=== PATIENT | female | born 1935 | race Asian ===

== ENCOUNTER 2021-02-07 12:21 | Inpatient (IN) | payer OTHER, MEDICAID, SELFPAY ==
[~2021-02-07] VITALS: Ht 162.6 cm; Wt 82.6 kg
[~2021-02-07 12:21] MED LIST: ACET-1182 PO; APIX2.5 PO; ATOR40TA PO; FURO-570 PO; LACT10SO11 PO; LISI5TAB18 PO; METF500T PO; METO50TE2 PO; PANT40EC PO; SYN.075 PO; [UNRECOGNIZED DRUG - CODE] PO
--- NOTE | 2021-02-07 12:22 | NUR ---
PT TAKEN TO ER BED 4.
--- NOTE | 2021-02-07 12:24 | NUR ---
RN at pt bedside for evaluation.
[2021-02-07 12:25] VITALS: BP 117/71
--- NOTE | 2021-02-07 12:30 | NUR ---
85 FEMALE BIBA FROM [facility] [place] DUE TO R HIP XRAY FROM 02/06/21 SHOWING FRACTURE. PER EMT "FACILITY WANTS TO SEE WHAT CAN BE DONE FOR THE PT WITH HER CURRENT XRAY SHOWING A R HIP FRACTURE." PT BASELINE IS A&OX1 AND ONLY SPEAKS AMHARIC. BED TO LOWEST POSITION. BEDRAILS X2 UP FOR PT. PMH: HTN NKA Addendum: 02/07/21 at 1232 by [email or web address] PMH: DM, HTN
[2021-02-07] MEDS ORDERED: METO50TE2 PO (12:41)
[2021-02-07] MEDS ORDERED: LACT-103 PO (12:41)
[2021-02-07] MEDS ORDERED: FURO-570 PO (12:41)
[2021-02-07] MEDS ORDERED: ATOR40TA PO (12:41)
[2021-02-07] MEDS ORDERED: METF500T PO (12:41)
[2021-02-07] MEDS ORDERED: LISI5TAB18 PO (12:41)
[2021-02-07] MEDS ORDERED: POTA10TE30 PO (12:41)
[2021-02-07] MEDS ORDERED: SYN.05 PO (12:41)
[2021-02-07] MEDS ORDERED: APIX2.5 PO (12:41)
--- NOTE | 2021-02-07 12:41 | NUR ---
semiconductor development technician at pt bedside, brendan MANJARREZ at pt bedside.
[2021-02-07 12:54] LABS: BASOPHILS # (AUTO) 0.1 K/uL (0.00-0.22); BASOPHILS % (AUTO) 0.8 % (0.0-2.0); EOSINOPHILS # (AUTO) 0.1 K/uL (0-0.4); EOSINOPHILS % (AUTO) 0.9 % (0.0-4.0); HEMATOCRIT 32.3 % (36-48); HEMOGLOBIN 10.8 g/dL (12.0-16.0); LYMPHOCYTES # (AUTO) 0.7 K/uL (2.5-16.5); LYMPHOCYTES % (AUTO) 9.8 % (20.5-51.1); MEAN CORPUSCULAR HEMOGLOBIN 34 pg (27-31); MEAN CORPUSCULAR HGB CONC 34 g/dL (33-37); MEAN CORPUSCULAR VOLUME 100.7 fL (80-94); MONOCYTES # (AUTO) 0.9 K/uL (0.8-1.0); MONOCYTES % (AUTO) 13.6 % (1.7-9.3); NEUTROPHILS % (AUTO) 74.9 % (42.2-75.2); PLATELET COUNT (AUTO) 117 K/uL (140-450); RED BLOOD CELL COUNT(AUTO) 3.21 MIL/uL (4.20-5.40); RED CELL DISTRIBUTION WIDTH 18.7 % (11.6-13.7); WHITE BLOOD COUNT (AUTO) 6.7 K/uL (4.8-10.8)
--- NOTE | 2021-02-07 12:57 | NUR ---
PT TAKEN TO XRAY VIA STEVE
[2021-02-07 13:08] LABS: PROTHROMBIN TIME 14.7 secs (10.8-13.4)
--- NOTE | 2021-02-07 13:11 | NUR ---
PT TAKEN TO ER BED 4 VIA YANGRSARAI.
[2021-02-07 13:21] LABS: ANION GAP 13.1 (8-16); CARBON DIOXIDE 24.9 mmol/L (21-32); CHLORIDE 105 mmol/L (98-107); CREATININE 1.3 mg/dL (0.6-1.3); GLUCOSE 122 mg/dL (74-106); SODIUM SERUM 139 mmol/L (136-145); UREA NITROGEN, BLOOD 33 mg/dL (7-18)
[2021-02-07 13:26] LABS: ALBUMIN 3.2 g/dL (3.4-5.0); ASPARTATE AMINOTRANSFERASE 27 U/L (15-37); TOTAL BILIRUBIN 3.3 mg/dL (0.0-1.0)
[2021-02-07] MEDS ORDERED: ONDANSETRON 4 MG/2 ML VIAL IVP PRN (13:40)
[2021-02-07] MEDS ORDERED: POTASSIUM CHLORIDE 10 MEQ TABER PO PRN (13:40)
[2021-02-07] MEDS ORDERED: MAGNESIUM OXIDE 400 MG TAB PO PRN (13:40)
[2021-02-07] MEDS ORDERED: HYDROcodone/APAP 5/325 MG 1 TAB TAB PO PRN (13:40)
[2021-02-07] MEDS ORDERED: MAG SULF 2000 MG/WATER PREMIX 50 ML IV PRN (13:40)
[2021-02-07] MEDS ORDERED: KCL 20 MEQ/WATER INJ PREMIX 200 ML IV PRN (13:40)
[2021-02-07] MEDS ORDERED: ACETAMINOPHEN 325 MG TAB PO PRN (13:40)
--- NOTE | 2021-02-07 14:02 | NUR ---
PT TAKEN TO CT VIA STEVE
[2021-02-07] MEDS: NACL 0.9% 1,000 ML IV SCH (14:03)
--- NOTE | 2021-02-07 14:13 | NUR ---
Pt taken to ER bed 4 via [facility].
[2021-02-07] MEDS: MORPHINE SULFATE 4 MG/ML SYR IVP PRN (15:03)
--- NOTE | 2021-02-07 15:47 | NUR ---
Gave report to JD Singh for pending transfer 110A ETA 10minutes.
[2021-02-07 16:00] VITALS: BP 136/83
--- NOTE | 2021-02-07 16:00 | NUR ---
Pt admitted to room 110A from ED via [facility]. Pt is alert, Mohawk-speaking, no signs of distress. Pt transferred from [place] to bed with 4-person sliding transfer. Right hip noted to be externally rotated. Tiwari cath in place and draining clear orange urine.
--- NOTE | 2021-02-07 16:04 | NUR ---
Patient will be admitted to care of DR. SHAKIR JONES. Admited to [facility]. Will go to room 110A. Belongings list completed. Report to JD DREW.
--- NOTE | 2021-02-07 16:29 | NUR ---
SaO2 = 90% in room air. Instructed patient to take deep breaths. Dr Jones notified and ok'd to administer O2 via n/c. O2 applied and titrated to 3L/min to achieve SaO2 @ 95%. Respirations even & nonlabored. Bed alarm on. Fall precautions in place.
--- NOTE | 2021-02-07 17:30 | NUR ---
Spoke to Kathrin nurse from [facility] re: pt's hx. Per Kathrin, she unable to locate pt's chart at this time. Informed Kathrin staff nurse will f/u tomorrow for report. Kathrin verbalized understanding.
--- NOTE | 2021-02-07 17:45 | NUR ---
Daughter Ezra called back and notified of pt's admission to room 110A. Daughter states pt has not had COVID vaccine, and she is not sure if pt had PNA vaccine and FLU vaccine.
--- NOTE | 2021-02-07 19:20 | NUR ---
Report given to pm nurse.
[2021-02-07 21:00] VITALS: BP 117/51
[2021-02-08] MEDS: NACL 0.9% 1,000 ML IV SCH ×2 (03:53→14:40)
[2021-02-08 04:04] VITALS: BP 92/54
[2021-02-08 06:04] LABS: BASOPHILS % (AUTO) 0.7 % (0.0-2.0); EOSINOPHILS # (AUTO) 0.1 K/uL (0-0.4); EOSINOPHILS % (AUTO) 1.6 % (0.0-4.0); HEMATOCRIT 29.6 % (36-48); HEMOGLOBIN 9.8 g/dL (12.0-16.0); LYMPHOCYTES # (AUTO) 0.7 K/uL (2.5-16.5); MEAN CORPUSCULAR HEMOGLOBIN 34 pg (27-31); MEAN CORPUSCULAR HGB CONC 33 g/dL (33-37); MEAN CORPUSCULAR VOLUME 101.4 fL (80-94); MONOCYTES # (AUTO) 0.7 K/uL (0.8-1.0); MONOCYTES % (AUTO) 13.1 % (1.7-9.3); NEUTROPHILS # (AUTO) 3.8 K/uL (1.8-7.7); NEUTROPHILS % (AUTO) 70.6 % (42.2-75.2); PLATELET COUNT (AUTO) 96 K/uL (140-450); RED BLOOD CELL COUNT(AUTO) 2.91 MIL/uL (4.20-5.40); RED CELL DISTRIBUTION WIDTH 18.9 % (11.6-13.7); WHITE BLOOD COUNT (AUTO) 5.4 K/uL (4.8-10.8)
[2021-02-08 06:26] LABS: PROTHROMBIN TIME 14.4 secs (10.8-13.4)
--- NOTE | 2021-02-08 06:36 | NUR ---
PT SLEPT WELL DURING NIGHT. NO C/O PAIN. NPO FOR SURGERY IN A.M. PT ABLE TO MAINTAIN SATURATION AT 96% ON RA X3HRS. 02 N/C TAKEN OFF. REMAINS AT BEDSIDE. WILL MONITOR FOR EVIDENCE DESATURATION.
[2021-02-08 06:46] LABS: ALBUMIN 2.8 g/dL (3.4-5.0); ANION GAP 13.5 (8-16); ASPARTATE AMINOTRANSFERASE 24 U/L (15-37); CARBON DIOXIDE 22.8 mmol/L (21-32); CHLORIDE 109 mmol/L (98-107); CREATININE 1.5 mg/dL (0.6-1.3); GLUCOSE 95 mg/dL (74-106); POTASSIUM 4.3 mmol/L (3.5-5.1); SODIUM SERUM 141 mmol/L (136-145); TOTAL BILIRUBIN 2.9 mg/dL (0.0-1.0); UREA NITROGEN, BLOOD 38 mg/dL (7-18)
[2021-02-08 06:55] LABS: CHOL/HDL RATIO 2.6 (1-4.5)
--- NOTE | 2021-02-08 07:24 | NUR ---
PT ENDORSED BY APPLIQUE SEWER NURSE FOR CONTINUITY OF CARE, POC DISCUSSED. PT IS IN FOR A RIGHT FEMORAL FRACTURE. PT IS ASLEEP IN BED WITH NO ACUTE SIGNS OF DISTRESS. PT IS ON ROOM AIR SATING AT 94% AND HR AT 63. PT SKIN IS INTACT. LAST BOWEL MOVEMENT ON THE 16. PT HAS A JANSEN IN PLACE WITH 200 ML OUT PUT OF YELLOW URINE. PT HAS A LEFT AC 20 G RUNNING NS @ 80 ML/HR. ALL SAFETY MEASURES IN PLACE, CALL LIGHT WITHIN REACH. WILL CONTINUE TO MONITOR.
--- NOTE | 2021-02-08 07:48 | NUR ---
PATIENT HAS BEEN SCREENED AND CATEGORIZED LOW NUTRITION RISK. PATIENT WILL BE SEEN WITHIN 7 DAYS OF ADMISSION. 02/14/[address]
[2021-02-08 08:00] VITALS: BP 129/77
[2021-02-08] MEDS: MORPHINE SULFATE 4 MG/ML SYR IVP PRN ×2 (08:44→14:15)
[2021-02-08] MEDS: DOCUSATE SODIUM 100 MG GELCAP PO SCH ×2 (08:44→08:53)
--- NOTE | 2021-02-08 08:53 | NUR ---
JUDY HEPARIN HELD FOR PLT UNDER 100 AND POSSIBLE PROCEDURE TODAY. JUDY MEDICATION NOT ADMINISTERED DUE TO PT REFUSING. PT COMPLAINED OF PAIN, BP AND HR STABLE, PAIN MEDICATION ADMINISTERED PER MD ORDER. PT IS RESTING IN BED WITH ALL SAFETY MEASURES IN PLACE. CALL LIGHT WITHIN REACH. WILL CONTINUE TO MONITOR.
--- NOTE | 2021-02-08 11:24 | NUR ---
ROUNDED ON PT, PT IS ASLEEP IN BED WITH NO S/S OF ACUTE DISTRESS. ON 2 L NC, SATING AT 98%. PT CHEST RISING AND FALLING EVEN AND UNLABORED. ALL SAFETY MEASURES IN PLACE, CALL LIGHT WITHIN REACH. WILL CONTINUE TO MONITOR.
[2021-02-08] MEDS ORDERED: LACTULOSE 20 GM/30 ML UDC PO PRN (12:55)
[2021-02-08] MEDS ORDERED: INSULIN LISPRO SLIDING SCALE 100 UNITS/ML VIAL SUBQ PRN (12:55)
[2021-02-08] MEDS ORDERED: DEXTROSE 50% 50 ML SYR IVP PRN (12:55)
--- NOTE | 2021-02-08 13:46 | NUR ---
ROUNDED ON PT, PT IS RESTING COMFORTABLY IN BED WITH CHEST RISING AND FALLING EVEN AND UNLABORED. ALL SAFETY MEASURES IN PLACE. CALL LIGHT WITHIN REACH. WILL CONTINUE TO MONITOR.
--- NOTE | 2021-02-08 14:15 | NUR ---
PT COMPLAINING OF SEVERE PAIN, FLACC 7. WILL MEDICATE PER MD ORDER. PT EDUCATION PROVIDED. PT UNABLE TO COMPREHEND. VITAL SIGNS WNL. PT TOLERATED ADMINISTRATIONS. ALL SAFETY MEASURES IN PLACE. CALL LIGHT WITHIN REACH WILL CONTINUE TO MONITOR.
--- NOTE | 2021-02-08 15:24 | NUR ---
ROUNDED ON PT, PT IS ASLEEP IN BED WITH NO ACUTE S/S OF DISTRESS. ALL SAFETY MEASURES IN PLACE, CALL LIGHT WITHIN REACH. WILL CONTINUE TO MONITOR.
[2021-02-08] MEDS: BLOOD GLUCOSE MONITORING 1 DEV DEV FS SCH ×2 (17:09→21:15)
--- NOTE | 2021-02-08 19:04 | NUR ---
PT IS IN STABLE CONDITION AND WILL BE ENDORSED TO SALES AND SERVICE ENGINEER NURSE. ALL SAFETY MEASURES IN PLACE. POC DISCUSSED.
[2021-02-08 20:17] VITALS: BP 126/75
--- NOTE | 2021-02-08 20:44 | NUR ---
RECEIVED PT IN STABLE CONDITION FROM AM NURSE. AWAKE,BUT CONFUSED. MED SURG PT. BEDREST. WITH NO S/S OF ANY PAIN NOTED AT THIS TIME. HAS IVF INFUSING WELL ON THE LT AC G#20. NEED FREQUENT REMINDING TO PUT LT ARM STRAIGHT. HAS JANSEN CATHETER DRAINING TO CLEAR URINE OUTPUT. FREQ CHECK NEEDED.ED ON LOWEST POSITION. SIDE RAILS UP X2. CALL LIGHT PLACED WITHIN REACH. WILL CONTINUE TO MONITOR. Addendum: 02/09/21 at 0249 by May Nuñez RN TIME RECEIVED PT WAS AROUND 1919.
[2021-02-08] MEDS ORDERED: LEVOTHYROXINE 0.05 MG TAB PO SCH (21:00)
[2021-02-08] MEDS: PANTOPRAZOLE 40 MG TABEC PO SCH (21:13)
[2021-02-08] MEDS: ATORVASTATIN 20 MG TAB PO SCH (21:13)
--- NOTE | 2021-02-08 22:00 | NUR ---
MADE AWARE THAT HEPARIN WAS HOLD TONIGHT FOR SURGERY TOMORROW. ALSO HE SAID OK TO CHANGE IVF PRESENT IVF OF NS 80 ML TO D5 1/2 NS AT 50 ML/HR.
[2021-02-08] MEDS: DEXT 5% / NACL 0.45% 1,000 ML IV SCH (23:11)
--- NOTE | 2021-02-09 00:05 | NUR ---
KEPT PT NPO FOR SURGERY IN AM. CONSENT STILL NEED TO BE SIGNED BY FAMILY AND SURGEON.
--- NOTE | 2021-02-09 00:21 | NUR ---
PATIENT ASLEEP, RESTING IN A POSITION OF COMFORT, NO OBVIOUS SIGNS OF DISTRESS OBSERVED. VS STABLE, OXYGEN SATURATION 97%, RR 18. WILL CONTINUE TO CLOSELY MONITOR AND FREQUENTLY ROUND. Addendum: 02/10/21 at 0709 by Demar Werner RN RN DISREGARD, NOTE FOR 02/10
--- NOTE | 2021-02-09 02:00 | NUR ---
MADE ROUNDS. PT ASLEEP. NO S/S OF ANY DISCOMFORT NOR PAIN NOTED.
[2021-02-09 04:00] VITALS: BP 116/58
[2021-02-09] MEDS: MORPHINE SULFATE 4 MG/ML SYR IVP PRN (04:20)
[2021-02-09] MEDS: LEVOTHYROXINE 0.075 MG TAB PO SCH (06:26)
[2021-02-09] MEDS: BLOOD GLUCOSE MONITORING 1 DEV DEV FS SCH ×4 (06:26→21:42)
[2021-02-09 06:36] LABS: BASOPHILS # (AUTO) 0.1 K/uL (0.00-0.22); BASOPHILS % (AUTO) 1.1 % (0.0-2.0); EOSINOPHILS # (AUTO) 0.1 K/uL (0-0.4); HEMATOCRIT 30.9 % (36-48); HEMOGLOBIN 10.1 g/dL (12.0-16.0); LYMPHOCYTES # (AUTO) 0.9 K/uL (2.5-16.5); LYMPHOCYTES % (AUTO) 15.4 % (20.5-51.1); MEAN CORPUSCULAR HEMOGLOBIN 34 pg (27-31); MEAN CORPUSCULAR HGB CONC 33 g/dL (33-37); MEAN CORPUSCULAR VOLUME 102.8 fL (80-94); MONOCYTES # (AUTO) 0.9 K/uL (0.8-1.0); MONOCYTES % (AUTO) 14.6 % (1.7-9.3); NEUTROPHILS # (AUTO) 4.2 K/uL (1.8-7.7); NEUTROPHILS % (AUTO) 67.9 % (42.2-75.2); PLATELET COUNT (AUTO) 125 K/uL (140-450); RED BLOOD CELL COUNT(AUTO) 3.01 MIL/uL (4.20-5.40); RED CELL DISTRIBUTION WIDTH 19.4 % (11.6-13.7); WHITE BLOOD COUNT (AUTO) 6.2 K/uL (4.8-10.8)
[2021-02-09 06:57] LABS: PROTHROMBIN TIME 12.6 secs (10.8-13.4)
[2021-02-09 07:00] LABS: ANION GAP 14.8 (8-16); ASPARTATE AMINOTRANSFERASE 22 U/L (15-37); CARBON DIOXIDE 21.9 mmol/L (21-32); CHLORIDE 110 mmol/L (98-107); CREATININE 1.6 mg/dL (0.6-1.3); GLUCOSE 104 mg/dL (74-106); POTASSIUM 4.7 mmol/L (3.5-5.1); SODIUM SERUM 142 mmol/L (136-145); TOTAL BILIRUBIN 2.7 mg/dL (0.0-1.0); UREA NITROGEN, BLOOD 45 mg/dL (7-18)
--- NOTE | 2021-02-09 07:24 | NUR ---
PT ENDORSED BY HOG RIBBER NURSE FOR CONTINUITY OF CARE, POC DISCUSSED. PT IS ASLEEP IN BED ON 2L NC WITH CHEST RISING AND FALLING EVEN AND UNLABORED. PT IS SATING AT 91% WITH A HEART RATE OF 74. PT HAS A L AC 20 GAUGE RUNNING HALF D5 NS AT 50 ML. PT IS NPO FOR PROCEDURE SCHEDULED AT 1030, CONSENT NOT SIGNED. NOTIFIED DR MILLS AND THAT PT IS UNABLE TO SIGN FOR HERSELF, PHONE NUMBER IN CHART FOR DAUGHTER. STATED HE WILL " BE IN, IN 15 MINUTES". PREOP CHECK LIST COMPLETED BY HOG RIBBER NURSE. ALL SAFETY MEASURES IN PLACE, CALL LIGHT WITHIN REACH. WILL CONTINUE TO MONITOR.
--- NOTE | 2021-02-09 08:00 | NUR ---
DR. MILLS SPOKE WITH DAUGHTER TO OBTAIN CONSENT, 2 RN SIGNED CONSENT FOR OVER THE PHONE CONSENT, MYSELF AND JOSEPH. ALL QUESTIONS ANSWERED. WILL NOTIFY DAUGHTER OF UPDATE LATER THIS AFTERNOON AFTER SURGERY.
--- NOTE | 2021-02-09 08:59 | NUR ---
PT HAS BEEN PICKED UP FOR HER JUDY SURGERY. REPORT WAS GIVEN TO JD JHA AND DR. FISH. ALL QUESTIONS WERE ANSWERED AND CARDIOLOGY REPORT WAS PRINTED FOR DR. FISH. PT IS IN STABLE CONDITION.
[2021-02-09] MEDS ORDERED: metFORMIN 500 MG TAB PO SCH (09:00)
[2021-02-09] MEDS ORDERED: FUROSEMIDE 20 MG TAB PO SCH (09:00)
[2021-02-09] MEDS: DOCUSATE SODIUM 100 MG GELCAP PO SCH (09:00)
[2021-02-09] MEDS: METOPROLOL SUCCINATE 50 MG TABER PO SCH (09:00)
[2021-02-09] MEDS: PANTOPRAZOLE 40 MG TABEC PO SCH ×2 (09:00→21:00)
[2021-02-09] MEDS: FUROSEMIDE 40 MG TAB PO SCH (09:00)
[2021-02-09] MEDS: lisinopriL 5 MG TAB PO SCH (09:00)
[2021-02-09] MEDS ORDERED: ETOMIDATE 20 MG/10 ML VIAL IVP ONE (09:45)
[2021-02-09] MEDS ORDERED: fentaNYL citrate 0.05 MG/ML VIAL ONE (09:45)
[2021-02-09] MEDS ORDERED: MAGNESIUM SULFATE IV ONE (09:45)
[2021-02-09] MEDS ORDERED: ROCURONIUM 50 MG/5 ML VIAL IV ONE (09:45)
[2021-02-09] MEDS ORDERED: TRANEXAMIC ACID 1,000 MG/10 ML VIAL ONE (09:45)
[2021-02-09] MEDS ORDERED: SUGAMMADEX SODIUM 200 MG/2 ML VIAL IV ONE (09:45)
[2021-02-09] MEDS ORDERED: FUROSEMIDE 20 MG/2 ML VIAL IVP ONE (09:45)
[2021-02-09] MEDS ORDERED: LIDOCAINE 2% 100 MG/5 ML SYR IVP ONE (09:45)
[2021-02-09] MEDS ORDERED: BUPIVACAINE-MPF/EPI 0.25% 30 ML VIAL INJ ONE (09:46)
[2021-02-09] MEDS ORDERED: PHENYLEPHRINE 10 MG in NACL 0.9% 250 ML IV PRN (10:35)
[2021-02-09 12:00] VITALS: BP 93/51
[2021-02-09] MEDS ORDERED: diphenhydrAMINE 50 MG/ML VIAL IVP PRN (13:00)
[2021-02-09] MEDS ORDERED: MEPERIDINE 25 MG/ML SYR IVP PRN (13:00)
[2021-02-09] MEDS: OXYTOCIN 20 UNITS in LACTATED RINGERS 1,000 ML IV SCH ×2 (13:00→21:21)
[2021-02-09] MEDS: LACTATED RINGERS 1,000 ML IV SCH ×2 (13:00→21:20)
[2021-02-09] MEDS ORDERED: HYDROmorphone 1 MG/ML AMP IVP PRN (13:00)
[2021-02-09] MEDS ORDERED: ONDANSETRON 4 MG/2 ML VIAL IVP PRN (13:00)
--- NOTE | 2021-02-09 14:14 | NUR ---
RECEIVED REPORT FROM ABHIJEET REAGAN AND DELMER MILES. S/P ORIF OF RIGHT HIP. PT ASLEEP BUT AROUSABLE BY NAME, NO S/S OF PAIN, NO SOB
[2021-02-09 16:00] VITALS: BP 97/58
--- NOTE | 2021-02-09 16:30 | NUR ---
2-hour vital signs monitoring done. VS within normal limits
[2021-02-09] MEDS: DEXT 5% / NACL 0.45% 1,000 ML IV SCH (16:42)
--- NOTE | 2021-02-09 17:30 | NUR ---
CALLED DR MOHR TO CLARIFY DIET ORDER. MAY START CARDIAC CCHO PUREE DIET
--- NOTE | 2021-02-09 17:45 | NUR ---
BEDSIDE SWALLOW EVAL DONE, PT NOT SWALLOWING FOOD AND POCKETING. DR MOHR NOTIFIED, ORDERED ST EVAL
--- NOTE | 2021-02-09 18:39 | NUR ---
PT RESTING IN BED, AWAKENS TO NAME, NO SOB, WITH GRIMACING WHEN MOVING
--- NOTE | 2021-02-09 19:30 | NUR ---
RECEIVED CARE AND REPORT FROM DAYSHIFT RN. PATIENT ALERT AND ORIENTED X 1 TO PERSON, NON AMBULATORY, S/P SURGERY. PATIENT RESTING IN A POSITION OF COMFORT, HOB 30 DEGREES, AIRWAY OPEN, CLEAR AND MAINTAINABLE. PATIENT DENIES SOB OR DIFFICULTY BREATHING WHEN ASKED. PATIENT CONNECTED TO NC 2 LPM, OXYGEN SATURATION IS 95%, RR 20, NO OBVIOUS SIGNS OF DISTRESS OBSERVED WHILE AT BEDSIDE. PATIENT CONNECTED TO CONTINUOUS TELE MONITORING, HR 86. PATIENT IV SITE INCLUDES LEFT FA 18G IV SITE DRESSING DRY, INTACT AND FLUSHING WELL. NO SIGNS OF INFILTRATION OR PAIN PRESENT AT THE SITE. PATIENT RUNNING D5-1/2 NS AT 50 ML/HR. PATIENT HAS A JANSEN CATHETER INTACT, IN PLACE AND DRAINING WELL. PATIENT SKINS SHOW RIGHT THIGH, TWO INCISION W/ MEREDITH, DRESSINGS DRY, INTACT AND IN PLACE AND CLEAN. PATIENT HAS LEG BRACE IN PLACE POST SURGERY. BED LOCKED AND LOWERED INTO A POSITION OF SAFETY. PATIENT BEING OFFLOADED FROM PRESSURE POINTS WITH USE OF PILLOWS AND REPOSITIONING PROVIDED Q2 HOURS. PROMOTING A RESTFUL HEALING ENVIRONMENT WITH DECREASED STIMULI. PATIENT ORIENTED TO ROOM ENVIRONMENT, NURSE CALL LIGHT PLACED WITHIN REACH OF PATIENT. WILL CONTINUE TO REASSESS OFTEN, CLOSELY MONITOR AND FREQUENTLY ROUND.
[2021-02-09 20:00] VITALS: BP 110/50
[2021-02-09] MEDS: ATORVASTATIN 20 MG TAB PO SCH (21:00)
--- NOTE | 2021-02-09 21:30 | NUR ---
SCHEDULED IV MEDICATIONS GIVEN, TOLERATING THERAPIES WELL. VS STABLE, WILL CONTINUE TO CLOSELY MONITOR AND FREQUENTLY ROUND.
[2021-02-09] MEDS ORDERED: ceFAZolin 1,000 MG VIAL ONE (21:35)
--- NOTE | 2021-02-09 21:35 | NUR ---
CALLED DR. MILLS TO CLARIFY MEDICATION ORDERS FOR PATIENT. DR. MILLS ORDERED VERBALLY OVER THE TELEPHONE TO HOLD HEPARIN SUBQ FOR TONIGHT AND RESUME IN THE MORNING IF NO BLEEDING PRESENT, HEPARIN HELD TONIGHT NOT GIVEN. MD ALSO STATED TO CONTINUE TO GIVING D5%-0.45% NS AT 50 ML/HR. STATED TO HOLD LACTATED RINGERS AND HOLD LACTATED RINGERS WITH PITOCIN. WILL CARRY OUT ORDERS.
--- NOTE | 2021-02-09 21:40 | NUR ---
PATIENT UNABLE TO TOLERATE PO MEDICATIONS, MD AWARE, PO MEDS HELD DUE TO ASPIRATION RISK. PATIENT HAS A PENDING SWALLOW EVAL FOR WEDNESDAY MORNING. VS STABLE, WILL CONTINUE TO CLOSELY MONITOR AND FREQUENTLY ROUND.
--- NOTE | 2021-02-09 22:05 | NUR ---
DR. NELLY GRIJALVA CALLED UNIT, ASKED FOR UPDATE ON PATIENT STATUS, MD GIVEN REPORT ON PATIENT STATUS, VS STABLE. MD NOTIFIED OF ORDERS RECEIVED FROM DR. MILLS. MD ACKNOWLEDGED PATIENT STATUS AND CURRENT THERAPIES IN PLACE. MD REQUESTED TO BE PLACED A CONSULT ON THE ORDERS. WILL CARRY OUT ORDERS.
[2021-02-10] VITALS: BP 112/56
--- NOTE | 2021-02-10 00:21 | NUR ---
PATIENT ASLEEP, RESTING IN A POSITION OF COMFORT, NO OBVIOUS SIGNS OF DISTRESS OBSERVED. VS STABLE, OXYGEN SATURATION 97%, RR 18. WILL CONTINUE TO CLOSELY MONITOR AND FREQUENTLY ROUND.
--- NOTE | 2021-02-10 02:34 | NUR ---
PATIENT CONTINUES TO SLEEP AND REST IN A POSITION OF COMFORT, AIRWAY OPEN CLEAR AND MAINTAINABLE. VS STABLE, NO OBVIOUS SIGNS OF DISTRESS OBSERVED WHILE AT BEDSIDE . WILL CONTINUE TO CLOSELY MONITOR AND FREQUENTLY ROUND.
[2021-02-10 04:00] VITALS: BP 123/58
--- NOTE | 2021-02-10 04:16 | NUR ---
MORNING CARE, HARJIT CARE, REPOSITIONING, HYGIENE, SAFETY CHECKS, GOWN CHANGE, LINEN CHANGE AND CLEANING PROVIDED. VS STABLE, NO SOB, DIFFICULTY BREATHING OR DISCOMFORT OBSERVED. WILL CONTINUE TO CLOSELY MONITOR AND FREQUENTLY ROUND.
[2021-02-10] MEDS ORDERED: ceFAZolin 1,000 MG VIAL ONE (04:39)
[2021-02-10] MEDS: OXYTOCIN 20 UNITS in LACTATED RINGERS 1,000 ML IV SCH (04:46)
[2021-02-10] MEDS: LACTATED RINGERS 1,000 ML IV SCH (04:46)
--- NOTE | 2021-02-10 05:16 | NUR ---
SCHEDULED IV MEDICATIONS GIVEN, TOLERATING THERAPIES WELL. VS STABLE, WILL CONTINUE TO CLOSELY MONITOR AND FREQUENTLY ROUND.
[2021-02-10] MEDS: LEVOTHYROXINE 0.075 MG TAB PO SCH (05:44)
[2021-02-10] MEDS: BLOOD GLUCOSE MONITORING 1 DEV DEV FS SCH ×2 (06:33→11:13)
[2021-02-10 06:53] LABS: BASOPHILS % (AUTO) 0.6 % (0.0-2.0); EOSINOPHILS % (AUTO) 0.4 % (0.0-4.0); HEMATOCRIT 27.3 % (36-48); HEMOGLOBIN 8.9 g/dL (12.0-16.0); LYMPHOCYTES # (AUTO) 0.7 K/uL (2.5-16.5); LYMPHOCYTES % (AUTO) 9.9 % (20.5-51.1); MEAN CORPUSCULAR HEMOGLOBIN 34 pg (27-31); MEAN CORPUSCULAR HGB CONC 33 g/dL (33-37); MEAN CORPUSCULAR VOLUME 102.8 fL (80-94); NEUTROPHILS # (AUTO) 5.5 K/uL (1.8-7.7); NEUTROPHILS % (AUTO) 75.1 % (42.2-75.2); PLATELET COUNT (AUTO) 105 K/uL (140-450); RED BLOOD CELL COUNT(AUTO) 2.66 MIL/uL (4.20-5.40); RED CELL DISTRIBUTION WIDTH 19.1 % (11.6-13.7); WHITE BLOOD COUNT (AUTO) 7.4 K/uL (4.8-10.8)
[2021-02-10 06:58] LABS: PROTHROMBIN TIME 12.9 secs (10.8-13.4)
[2021-02-10] MEDS ORDERED: LACTULOSE 20 GM/30 ML UDC PO PRN (07:04)
--- NOTE | 2021-02-10 07:15 | NUR ---
REPORT AND CARE ENDORSED TO DAYSHIFT RN, VS STABLE.
[2021-02-10 07:16] LABS: ALBUMIN 2.6 g/dL (3.4-5.0); ANION GAP 10.3 (8-16); ASPARTATE AMINOTRANSFERASE 27 U/L (15-37); CARBON DIOXIDE 25.9 mmol/L (21-32); CHLORIDE 111 mmol/L (98-107); CREATININE 1.3 mg/dL (0.6-1.3); GLUCOSE 162 mg/dL (74-106); MAGNESIUM 2.2 mg/dL (1.8-2.4); POTASSIUM 4.2 mmol/L (3.5-5.1); SODIUM SERUM 143 mmol/L (136-145); TOTAL BILIRUBIN 2.7 mg/dL (0.0-1.0); UREA NITROGEN, BLOOD 36 mg/dL (7-18)
--- NOTE | 2021-02-10 07:30 | NUR ---
RECEIVED BEDSIDE REPORT FROM BASKET BOTTOM MACHINE OPERATOR. AOX1, UNABLE TO MAKE NEEDS KNOWN, MONGOLIAN SPEAKING. NONAMBULATORY, AROUSABLE BY TOUCH AND NAME. NO FLACC 0. RESPIRATION EVEN UNLABORED ON 2L O2. NO DISTRESS NOTED. SKIN IS WARM AND DRY. DRESSING INTACT ON RIGHT ORIF SITE, NO BLEEDING. IV PATENT AND INTACT. JANSEN INTACT. PLAN OF CARE WAS DISCUSSED. ALL SAFETY MEASURES IN PLACE. BED IS AT LOW POSITION. CALL LIGHT WITHIN REACH. WILL CONTINUE TO MONITOR
[2021-02-10 08:00] VITALS: BP 124/61
[2021-02-10] MEDS: PANTOPRAZOLE 40 MG TABEC PO SCH (08:58)
[2021-02-10] MEDS: FUROSEMIDE 40 MG TAB PO SCH (08:58)
[2021-02-10] MEDS: DOCUSATE SODIUM 100 MG GELCAP PO SCH (08:58)
[2021-02-10] MEDS: METOPROLOL SUCCINATE 50 MG TABER PO SCH (08:58)
[2021-02-10] MEDS: lisinopriL 5 MG TAB PO SCH (08:59)
[2021-02-10] MEDS ORDERED: ERGOCALCIFEROL 50,000 IU SGL PO SCH (09:00)
--- NOTE | 2021-02-10 09:00 | NUR ---
CRUSHABLE MEDS GIVEN WITH FOOD, PT SPIT OUT NONCRUSHABLE MEDS. WILL NOTIFY
--- NOTE | 2021-02-10 09:15 | NUR ---
PATIENT HAS BEEN RE-SCREENED AND CATEGORIZED MODERATE NUTRITION RISK. PATIENT WILL BE SEEN WITHIN 3-5 DAYS OF ADMISSION. 02/10/21 02/12/[address]
--- NOTE | 2021-02-10 10:45 | NUR ---
SEEN BY PT
[2021-02-10 12:00] VITALS: BP 123/61
--- NOTE | 2021-02-10 12:07 | NUR ---
PT AWAKE AND RESTING IN BED AT THIS TIME. FLACC 0, NO SOB
--- NOTE | 2021-02-10 13:49 | NUR ---
DC PLANNING: PATIENT HAS A DC ORDER TO GO BACK TO [facility]. CALLED PT'S DAUGHTER SPOKE WITH RIGO ANSWERED ALL THE QUESTION AND SHE AGREED WITH DC BACK TO [facility] CALLED [facility] SPOKE WITH [facility] AND FAXED ALL THE PAPERWORK ,AFTER REVIEWING [facility] ACCEPTED PATIENT CAN GO TO ROOM 14C # TO GIVE REPORT [phone]. ARRANGED TRANSPORT WITH [facility] ESTIMATOR TIME 4PM. NOTIFIED ALEKSANDRA MILES. CM TO FOLLOW
[2021-02-10] MEDS ORDERED: ACET-9525 PO (14:25)
--- NOTE | 2021-02-10 14:40 | NUR ---
norco 5/325 given for right hip pain 01/02
--- NOTE | 2021-02-10 15:00 | NUR ---
report given to ryan nelson from [facility]
--- NOTE | 2021-02-10 16:00 | NUR ---
picked up by [facility]. removed iv and rodriguez as ordered
[2021-02-10] MEDS ORDERED: APIXABAN 2.5 MG TAB PO SCH (21:00)
== END 2021-02-10 16:10 | DRG 480 ==
LOC: MED 12:21 → MMU 13:57 → MTU 15:37
PROVIDERS: ADMIT Hospitalist; ATTEND Hospitalist
PROC: 0QS604Z Reposition Right Upper Femur with Internal Fixation Device, Open Approach (ICD-10-PCS; principal; 2021-02-09 10:30)
DX: S72.141A Displaced intertrochanteric fracture of right femur, initial encounter for closed fracture (principal); I50.23 Acute on chronic systolic (congestive) heart failure; I48.91 Unspecified atrial fibrillation; Z20.822 Contact with and (suspected) exposure to COVID-19; E11.9 Type 2 diabetes mellitus without complications; I11.0 Hypertensive heart disease with heart failure; I50.9 Heart failure, unspecified; I25.10 Atherosclerotic heart disease of native coronary artery without angina pectoris; W18.30XA Fall on same level, unspecified, initial encounter; Z79.899 Other long term (current) drug therapy; Z79.01 Long term (current) use of anticoagulants; Z95.1 Presence of aortocoronary bypass graft; Y93.89 Activity, other specified; Y92.129 Unspecified place in nursing home as the place of occurrence of the external cause; Y99.8 Other external cause status
CPT/HCPCS: 36415; 71045; 72192; 73502; 77003; 80053; 82948; 83036; 83735; 83880; 84484; 85025; 85610; 87081; 93005; 96374; 96375; 97163-GP; 99285; C1713; J0690; J1644; J1940; J2001; J2270; J2370; J2405; J2590; J3010; J3475; J3490; J7030; J7060; J7120

== ENCOUNTER 2022-09-03 19:30 | Inpatient (IN) | payer OTHER ==
--- NOTE | 2019-09-07 07:39 | NUR ---
09/07/2022 0739: RECIEVED PT FROM [facility]. PT RESTING IN BED. NO SOB, GUARDING OR GRIMACING NOTED. NO ACUTE DISTRESS NOTED AT THIS TIME. [id number].
[~2022-09-03] VITALS: Ht 160 cm; Wt 59.0 kg
[~2022-09-03 19:30] MED LIST changes: +ACET-9525 PO; +BISA-213 RC; +LACT-103 PO; -LACT10SO11 PO; +METF-346 PO; -METF500T PO; +POTA10TA70 PO; +SYN.05 PO; -SYN.075 PO
--- NOTE | 2022-09-03 19:30 | NUR ---
PT BIBA BLS. TAKEN TO BED 9
--- NOTE | 2022-09-03 19:30 | NUR ---
Dr. Christina examining patient.
[2022-09-03 19:32] VITALS: BP 96/46
--- NOTE | 2022-09-03 19:42 | NUR ---
Patient resting in bed, A/Ox0, chest rise and fall symmetrical, patient on nonrebreather, no s/s of distress or s/s of pain.
--- NOTE | 2022-09-03 20:32 | NUR ---
X-Ray at bedside.
[2022-09-03 20:45] LABS: BASOPHILS % (AUTO) 0.2 % (0.0-2.0); HEMATOCRIT 33.7 % (36-48); LYMPHOCYTES # (AUTO) 0.2 K/uL (2.5-16.5); LYMPHOCYTES % (AUTO) 2.1 % (20.5-51.1); MEAN CORPUSCULAR HEMOGLOBIN 32 pg (27-31); MEAN CORPUSCULAR HGB CONC 33 g/dL (33-37); MEAN CORPUSCULAR VOLUME 97.5 fL (80-94); MONOCYTES # (AUTO) 0.6 K/uL (0.8-1.0); NEUTROPHILS # (AUTO) 7.9 K/uL (1.8-7.7); NEUTROPHILS % (AUTO) 90.7 % (42.2-75.2); PLATELET COUNT (AUTO) 119 K/uL (140-450); RED BLOOD CELL COUNT(AUTO) 3.46 MIL/uL (4.20-5.40); RED CELL DISTRIBUTION WIDTH 16.8 % (11.6-13.7); WHITE BLOOD COUNT (AUTO) 8.7 K/uL (4.8-10.8)
--- NOTE | 2022-09-03 21:03 | NUR ---
Patient resting in bed, A/Ox0, chest rise and fall symmetrical, patient on nonrebreather, no s/s of distress or s/s of pain.
[2022-09-03 21:04] LABS: PROTHROMBIN TIME 15.5 secs (10.8-13.4)
[2022-09-03 21:07] LABS: ALBUMIN 3.9 g/dL (3.4-5.0); ANION GAP 20.6 (8-16); ASPARTATE AMINOTRANSFERASE 74 U/L (15-37); CARBON DIOXIDE 22.8 mmol/L (21-32); CHLORIDE 100 mmol/L (98-107); CREATININE 1.7 mg/dL (0.6-1.3); GLUCOSE 109 mg/dL (74-106); POTASSIUM 5.4 mmol/L (3.5-5.1); SODIUM SERUM 138 mmol/L (136-145); TOTAL BILIRUBIN 2.7 mg/dL (0.0-1.0); UREA NITROGEN, BLOOD 27 mg/dL (7-18)
--- NOTE | 2022-09-03 21:12 | NUR ---
FAMILY AT BESIDE
--- NOTE | 2022-09-03 21:17 | NUR ---
Dr. Christina at bedside
[2022-09-03] MEDS ORDERED: ONDANSETRON 4 MG/2 ML VIAL IVP PRN (22:20)
[2022-09-03] MEDS ORDERED: ACETAMINOPHEN 325 MG TAB PO PRN (22:20)
[2022-09-03] MEDS ORDERED: MORPHINE SULFATE 4 MG/ML SYR IVP PRN (22:20)
[2022-09-03] MEDS ORDERED: LORazepam 1 MG TAB PO PRN (22:20)
--- NOTE | 2022-09-03 23:20 | NUR ---
Patient resting in bed, A/Ox0, chest rise and fall symmetrical, patient on nonrebreather, no s/s of distress or s/s of pain.
--- NOTE | 2022-09-03 23:55 | NUR ---
Patient will be admitted to care of Janice FORTUNE. Admited to [facility]. Will go to room [facility] 125B. Belongings list completed. Report given to Janice FORTUNE. Janice FORTUNE verbalized understanding of report, no further questions.
--- NOTE | 2022-09-04 00:02 | NUR ---
PATIENT ARRIVED VIA GURNEY NON REBREATHER MASK. NON VERBAL AND EYES CLOSED. PATIENT'S FAMILY AT BEDSIDE AND COLLECTED PATIENT'S HISTORY FROM DAUGHTER NEISHA MOORE. NO S/S OF PAIN/DISCOMFORT. DEEP AND LABORED BREATHING. RN NOTED BREATHING AT 38. ELEVATED TEMP OF 100.8, COOLING MEASURES STARTED BY REMOVING EXCESSIVE BLANKETS. PATIENT ATTEMPTED TO OPEN EYES WHEN HER NAME WAS CALLED. ORAL CARE WAS GIVEN BY THE REQUEST OF THE FAMILY. NURSING NOTED DRY BROWNISH RED DEBRIS IN HER NOSE. PATIENT IS CLEAN AND DRY AT THIS TIME. NO NOTED EDEMA TO LOWER EXTREMITIES. CALL LIGHT IN REACH FOR TV ENTERTAINMENT. FAMILY WAS EXPLAINED HOW TO USE IT WHEN IN NEED FOR ASSISTANCE OR HELP. SIDE RAILS UP X 3. NURSING WILL FREQUENT ROOM FOR ANTICIPATED NEEDS FOR THE PATIENT. MNURPH1
[2022-09-04 00:10] VITALS: BP 102/44
--- NOTE | 2022-09-04 01:13 | NUR ---
MORPHINE GIVEN, BP 101/56.
[2022-09-04 04:00] VITALS: BP 91/48
[2022-09-04 05:47] LABS: BASOPHILS % (AUTO) 0.2 % (0.0-2.0); HEMATOCRIT 32.6 % (36-48); HEMOGLOBIN 10.7 g/dL (12.0-16.0); LYMPHOCYTES # (AUTO) 0.5 K/uL (2.5-16.5); LYMPHOCYTES % (AUTO) 7.9 % (20.5-51.1); MEAN CORPUSCULAR HEMOGLOBIN 32 pg (27-31); MEAN CORPUSCULAR HGB CONC 33 g/dL (33-37); MEAN CORPUSCULAR VOLUME 98.6 fL (80-94); MONOCYTES # (AUTO) 1.2 K/uL (0.8-1.0); MONOCYTES % (AUTO) 18.6 % (1.7-9.3); NEUTROPHILS # (AUTO) 4.8 K/uL (1.8-7.7); NEUTROPHILS % (AUTO) 73.3 % (42.2-75.2); PLATELET COUNT (AUTO) 91 K/uL (140-450); RED BLOOD CELL COUNT(AUTO) 3.31 MIL/uL (4.20-5.40); WHITE BLOOD COUNT (AUTO) 6.5 K/uL (4.8-10.8)
[2022-09-04 05:55] LABS: ANION GAP 13.9 (8-16); CARBON DIOXIDE 27.7 mmol/L (21-32); CHLORIDE 103 mmol/L (98-107); CREATININE 1.9 mg/dL (0.6-1.3); GLUCOSE 156 mg/dL (74-106); POTASSIUM 4.6 mmol/L (3.5-5.1); SODIUM SERUM 140 mmol/L (136-145); UREA NITROGEN, BLOOD 39 mg/dL (7-18)
--- NOTE | 2022-09-04 07:07 | NUR ---
receive the patinet from the overnight cashier rn in rm 125B aox1 admitting diagnosis of altered mental status . will continue to monitor
[2022-09-04] MEDS ORDERED: ACETAMINOPHEN 650 MG SUPP RC PRN (07:30)
[2022-09-04] MEDS ORDERED: LORazepam 2 MG/ML VIAL IM/IVP PRN (07:30)
--- NOTE | 2022-09-04 07:36 | NUR ---
ENDORSED PATIENT CARE TO CONNIE RN, PATIENT WAS STABLE DURING SHIFT REPORT. MNURPH1
[2022-09-04 08:00] VITALS: BP 86/43
--- NOTE | 2022-09-04 09:02 | NUR ---
PATIENT HAS BEEN SCREENED AND CATEGORIZED MODERATE NUTRITION RISK. PATIENT WILL BE SEEN WITHIN 3-5 DAYS OF ADMISSION. REVIEWED BY SHARONDA FOY RD
--- NOTE | 2022-09-04 13:30 | NUR ---
DC PLANNING PER NOTES, PT IS NON VERBAL, THEREFORE, SW ATTEMPTED TO CALL PTS EMERGENCY CONTACT, RAY. NO ANSWER. SW OUTREACHED TO [facility] TO GATHER COLLAT INFO. HOWEVER, ADMIN UNAVAIL. SW TO FOLLOW
[2022-09-04 16:00] VITALS: BP 92/41
[2022-09-04] MEDS ORDERED: VANCOMYCIN PER PHARMACY MC PRN (16:05)
[2022-09-04] MEDS ORDERED: RENAL DOSING PER PHARMACY MC PRN (16:40)
--- NOTE | 2022-09-04 16:40 | NUR ---
md mendoza made rounds . order urine culture , antibiotics . noted and carried out
[2022-09-04] MEDS ORDERED: VANCOMYCIN 1,000 MG in DEXTROSE 5% 250 ML IV SCH (17:00)
[2022-09-04 18:38] LABS: BILIRUBIN,URINE SMALL (NEGATIVE); BLOOD, URINE NEGATIVE (NEGATIVE); COLOR,URINE YELLOW (YELLOW); LEUKOCYTE ESTERASE ,URINE NEGATIVE (NEGATIVE); NITRITE, URINE NEGATIVE (NEGATIVE); PH,URINE 5.5 (5.0-9.0); UGLUCOSE NEGATIVE (NEGATIVE)
[2022-09-04 18:45] LABS: APPEARANCE,URINE CLOUDY (CLEAR); RBC,URINE 0-5 /HPF (0-5); WBC,URINE 0-5 /HPF (0-5)
[2022-09-04 18:46] LABS: URINE AMORPHOUS URATE 3+ /HPF (None Seen)
--- NOTE | 2022-09-04 19:05 | NUR ---
will endorse to shipping receiving manager rn for continuity of care .
[2022-09-04 20:00] VITALS: BP 90/55
[2022-09-04] MEDS ORDERED: PIPERACILLIN/TAZOBACTAM 3.375 GM in DEXTROSE 5% 50 ML IV SCH (21:00)
[2022-09-04] MEDS: PIPERACILLIN/TAZOBACTAM 2.25 GM in DEXTROSE 5% 50 ML IV SCH (21:50)
[2022-09-05] VITALS: BP 98/51
[2022-09-05] MEDS: PIPERACILLIN/TAZOBACTAM 2.25 GM in DEXTROSE 5% 50 ML IV SCH ×3 (05:48→21:05)
[2022-09-05 05:54] LABS: ANION GAP 13.2 (8-16); CARBON DIOXIDE 27.8 mmol/L (21-32); CHLORIDE 103 mmol/L (98-107); CREATININE 2.2 mg/dL (0.6-1.3); GLUCOSE 106 mg/dL (74-106); SODIUM SERUM 139 mmol/L (136-145); UREA NITROGEN, BLOOD 60 mg/dL (7-18)
[2022-09-05 05:56] LABS: BASOPHILS % (AUTO) 0.1 % (0.0-2.0); HEMATOCRIT 31.8 % (36-48); HEMOGLOBIN 10.4 g/dL (12.0-16.0); LYMPHOCYTES # (AUTO) 0.5 K/uL (2.5-16.5); LYMPHOCYTES % (AUTO) 2.9 % (20.5-51.1); MEAN CORPUSCULAR HEMOGLOBIN 32 pg (27-31); MEAN CORPUSCULAR HGB CONC 33 g/dL (33-37); MEAN CORPUSCULAR VOLUME 97.3 fL (80-94); MONOCYTES # (AUTO) 0.9 K/uL (0.8-1.0); MONOCYTES % (AUTO) 5.6 % (1.7-9.3); NEUTROPHILS # (AUTO) 14.1 K/uL (1.8-7.7); NEUTROPHILS % (AUTO) 91.4 % (42.2-75.2); PLATELET COUNT (AUTO) 81 K/uL (140-450); RED BLOOD CELL COUNT(AUTO) 3.27 MIL/uL (4.20-5.40); RED CELL DISTRIBUTION WIDTH 16.9 % (11.6-13.7); WHITE BLOOD COUNT (AUTO) 15.5 K/uL (4.8-10.8)
--- NOTE | 2022-09-05 07:25 | NUR ---
RECEIVED REPORT FROM NIGHT NURSE FOR CONTINUITY OF CARE. INITIAL ASSESSMENT DONE. CALL LIGHT KEPT WITHIN REACH. WILL CONTINUE TO MONITOR.
[2022-09-05 08:00] VITALS: BP 105/57
--- NOTE | 2022-09-05 08:00 | NUR ---
PLAN OF CARE WAS DISCUSSED TO HARD TILE SETTER
--- NOTE | 2022-09-05 13:05 | NUR ---
PT WAS GIVEN IVPB ZOSYN NOW, PT IS SLEEPING VISIBLE CHEST RISE AND FALL, ON A NON-REBREATHER MASK AT 15L O2 SATURATING AT 99%, FALL AND SAFETY PRECAUTION IN PLACE. NO SIGN OF DISTRESS NOTED.
--- NOTE | 2022-09-05 15:10 | NUR ---
ATTEMPTED TO COLLECT UA VIA STRAIGHT CATH, NO URINE COLLECTED. NOTED INCONTINENT TO BLADDER. WILL FOLLOW UP.
--- NOTE | 2022-09-05 18:20 | NUR ---
RE ATTEMPTED TO COLLECT UA VIA STRAIGHT CATHETER. NO URINE COLLECTED. INCONTINENT CARE RENDERED. WILL CONTINUE TO FOLLOW UP.
--- NOTE | 2022-09-05 19:13 | NUR ---
BEDSIDE REPORT GIVEN TO GRZEGORZ FOR CONTINUITY OF CARE. REMAINS STABLE.
--- NOTE | 2022-09-05 19:30 | NUR ---
RECEIVED REPORT FROM DAY SHIFT NURSE SHEEBA FOR CONTINUITY OF CARE. PATIENT IS A&O X1. PATIENT IS ON 15L NON REBREATHER; BREATHING SOUNDS LABORED, BUT PATIENT IS SATING AT 100%. IV IS A 20 R WRIST, RUNNING NS AT 5ML TKO. PATIENT IS SLEEPING, LYING HIGH-FOWLERS POSITION. BED IS IN LOWEST POSITION, WHEELS LOCKED, CALL LIGHT IN PLACE. WILL CONTINUE TO OBSERVE PATIENT.
[2022-09-05 20:00] VITALS: BP 115/59
[2022-09-05] MEDS ORDERED: DILTIAZEM 30 MG TAB PO ONE (20:10)
[2022-09-05] MEDS ORDERED: CRUSHER, PILL MC ONE (20:22)
--- NOTE | 2022-09-05 20:45 | NUR ---
PATIENT'S HR IS CONSISTENTLY SINUS TACHY (120 - 135). NOTIFIED MIXED ANIMAL VETERINARIAN PHYSICIAN, DR. IPNEDO. ORDERED CARDIZEM 5MG BY MOUTH ONE TIME. PLACED ORDER, NOTIFIED PHARMACY, AND THEN PULLED MEDICATION ONCE IT WAS AUTHORIZED BY PHARMACY. ADMINISTERED 1/6 OF 30MG (5MG) TABLET TO PATIENT. PATIENT SWALLOWED WITH APPLESAUCE; PT REFUSED TO TAKE A SIP OF WATER. BEDSIDE MONITOR IS PRESENT, MONITORING HR AND O2. WILL CONTINUE TO OBSERVE PATIENT.
[2022-09-06 04:00] VITALS: BP 146/102
[2022-09-06] MEDS ORDERED: DIGOXIN 0.25 MG/ML AMP IV SCH (04:10)
--- NOTE | 2022-09-06 04:30 | NUR ---
PATIENT HAD VOIDED AND WAS CHANGED AND CLEANED WITH THE ASSISTANCE OF NURSE RAFI AND NURSE KIRBY. PATIENT'S HR INCREASED TO 160 AND CONTINUED TO INCREASE FLUCTUATING BETWEEN 170-180. MESSAGED DR. PINEDO AT 0345, BUT RECEIVED NO RESPONSE. AFTER 10 MINUTES CALLED EXCHANGED AND DISCOVERED DR. CARRASCO WAS NOW PRINTING MACHINE OPERATOR. DANILO WAS PAGED. DANILO CALLED BACK ABOUT 0400 AND ORDERED DIGOXIN 0.25 IV ONE TIME DOSE AND LOPRESSOR 5MG IV Q6HR. PATIENT WAS GIVEN DIGOXIN SUCCESSFULLY, WITHOUT ANY DIFFICULTIES. WILL CONTINUE TO OBSERVE PATIENT.
[2022-09-06 04:49] LABS: BASOPHILS % (AUTO) 0.1 % (0.0-2.0); HEMATOCRIT 34.2 % (36-48); LYMPHOCYTES # (AUTO) 0.7 K/uL (2.5-16.5); MEAN CORPUSCULAR HEMOGLOBIN 31 pg (27-31); MEAN CORPUSCULAR HGB CONC 32 g/dL (33-37); MEAN CORPUSCULAR VOLUME 96.8 fL (80-94); MONOCYTES # (AUTO) 0.9 K/uL (0.8-1.0); MONOCYTES % (AUTO) 5.3 % (1.7-9.3); NEUTROPHILS # (AUTO) 15.7 K/uL (1.8-7.7); PLATELET COUNT (AUTO) 105 K/uL (140-450); RED BLOOD CELL COUNT(AUTO) 3.53 MIL/uL (4.20-5.40); RED CELL DISTRIBUTION WIDTH 17.1 % (11.6-13.7); WHITE BLOOD COUNT (AUTO) 17.4 K/uL (4.8-10.8)
[2022-09-06] MEDS: PIPERACILLIN/TAZOBACTAM 2.25 GM in DEXTROSE 5% 50 ML IV SCH ×3 (05:28→21:05)
[2022-09-06] MEDS: METOPROLOL 5 MG/5 ML VIAL IV SCH ×3 (05:35→18:00)
--- NOTE | 2022-09-06 06:00 | NUR ---
PATIENT'S HR CONTINUES TO BE IN THE MID TO HIGH 100'S (140 - 160), DESPITE DIGOXIN BEING GIVEN. LOPRESSOR 5MG/5ML IVP WAS ADMINISTERED TO PATIENT. PATIENT'S HR HAS DROPPED FROM 140-160 RANGE TO 110-120 RANGE (FLUCTUATING BACK AND FORTH). WILL CONTINUE TO OBSERVE PATIENT.
[2022-09-06 06:57] LABS: ANION GAP 16.9 (8-16); CARBON DIOXIDE 25.4 mmol/L (21-32); CHLORIDE 105 mmol/L (98-107); POTASSIUM 5.3 mmol/L (3.5-5.1); SODIUM SERUM 142 mmol/L (136-145)
[2022-09-06 06:58] LABS: GLUCOSE 101 mg/dL (74-106)
[2022-09-06 07:00] LABS: LYMPHOCYTES % (AUTO) 4.3 % (20.5-51.1); NEUTROPHILS % (AUTO) 90.3 % (42.2-75.2)
[2022-09-06 07:02] LABS: UREA NITROGEN, BLOOD 67 mg/dL (7-18)
--- NOTE | 2022-09-06 07:18 | NUR ---
PATIENT PRESENTING WITH INCREASED WOB WITH RR AT 52 BPM SINUS TACHYCARDIA +118 BPM SATURATION 97% ON SUPPLEMENTAL OXYGEN AT 5 LPM VIA NC BREATH SOUNDS COARSE RALES AND WHEEZE BILATERAL DEEP CHEST RISES WITH INTERCOASTAL AND SUPRACLAVICULAR RETRACTIONS REVIEWED PATIENT EVENTS WITH NOC RN PATIENT CANDIDATE FOR HHN THERAPY
--- NOTE | 2022-09-06 07:23 | NUR ---
[facility]
--- NOTE | 2022-09-06 07:24 | NUR ---
RECEIVED CRITICAL LAB FROM [employer] FLOWER AT 0710. CR 1.96, UREA 67, POTASSIUM 5.3. PAGED DESKTOP MANAGER PHYSICIAN DR. JONES. PENDING RESPONSE FROM .
[2022-09-06] MEDS ORDERED: ALBUTEROL SULFATE/IPRATROPIU 3 ML SOL IH PRN (07:25)
[2022-09-06] MEDS ORDERED: ALBUTEROL SULFATE/IPRATROPIU 3 ML SOL IH ONE (07:25)
--- NOTE | 2022-09-06 07:47 | NUR ---
ENDORSED TO DAY SHIFT NURSE LITA FOR CONTINUITY OF CARE.
--- NOTE | 2022-09-06 07:54 | NUR ---
RECEIVED REPORT, PT HAS LABORED BREATHING, WHEEZING AND IS RECEIVING BREATHING TX, RT AT BEDSIDE AND RECOMMENDS ICU TRANSFER. HR ELEVATED IN 120'S, PER PM NURSE, HR ELEVATED LAST NIGHT UP TO 180'S. DR. JONES NOTIFIED OF PATIENT CONDITION AND RT RECOMMENDATION, NO NEW ORDERS AT THIS TIME. VALIDATION LEADER DELMER AWARE.
[2022-09-06 08:00] VITALS: BP 100/52
--- NOTE | 2022-09-06 08:14 | NUR ---
DR JONES NOTIFIED AT 0754 OF PTS LABORED BREATHING, COARSE AND WHEEZING LUNG SOUNDS, HR RISING TO THE 180S AND REITERATED NIGHT EVENTS REPORTED BY PM RN. RT RECOMMENDATION OF ICU TRANSFER. BREATHING TREATMENTS GIVING BY RT. MD STATES NO NEW ORDERS.
--- NOTE | 2022-09-06 08:30 | NUR ---
LATE ENTRY- 08 DR. JONES NOTIFIED OF ABNORMAL LAB RESULTS. RAND CEMENTER 2, K 5.3, UREA 67. RECEIVED ORDER FOR D5 1/2 NS @ 40ML/HR.
[2022-09-06] MEDS ORDERED: VANCOMYCIN 1,000 MG in DEXTROSE 5% 250 ML IV SCH (09:00)
[2022-09-06] MEDS ORDERED: DEXT 5% / NACL 0.45% 1,000 ML IV SCH (10:50)
--- NOTE | 2022-09-06 12:40 | NUR ---
PATIENT RESTING IN BED, DAUGHTER NEISHA AT BEDSIDE. BP 128/80, HR 105, RR 20 ON 5LNC. UPDATE GIVEN TO DAUGHTER, DAUGHTER WOULD LIKE TO SPEAK WITH MD. DR JONES NOTIFIED AND MADE AWARE OF DAUGHTERS REQUEST. HOB ELEVATED TO 45 DEGREES, SIDE RAILS x2, SAFETY MEASURES IN PLACE. ALL NEEDS MET AT THIS TIME.
[2022-09-06] MEDS: ALBUTEROL SULFATE/IPRATROPIU 3 ML SOL IH SCH ×2 (13:31→19:03)
[2022-09-06 16:00] VITALS: BP 143/68
--- NOTE | 2022-09-06 16:20 | NUR ---
DR. JONES AT BEDSIDE GIVING DAUGHTER NEISHA UPDATE. PATIENT RESTING IN BED, RESPIRATIONS EVEN AND UL ON 3LNC. ALL NEEDS MET.
--- NOTE | 2022-09-06 18:26 | NUR ---
BP 97/58, HR 92. HELD 1800 DOSE OF IVP METOPROLOL. DR. JONES AWARE, NO NEW ORDERS.
--- NOTE | 2022-09-06 18:29 | NUR ---
PATIENT RESTING IN BED, NO S/S OF DISTRESS. RESPIRATIONS EVEN AND UL ON 3LNC, IVF INFUSING TO RW, IV SITE INTACT & PATENT. ALL NEEDS MT. SAFETY MEASURES IN PLACE, WILL ENDORSE TO PM NURSE FOR CONTINUITY OF CARE.
--- NOTE | 2022-09-06 18:52 | NUR ---
PATIENT RESTING IN BED, RESPIRATIONS EVEN AND UL ON 3LNC. NO SIGNS OF DISCOMFORT/DISTRESS AT THIS TIME. HOB ELEVATED, ASPIRATIONS PRECAUTIONS MAINTAINED AT ALL TIMES. PT KEPT CLEAN AND DRY. ALL NEEDS MET. BED IN LOW, SIDE RAILS x2, SAFETY MEASURES IN PLACE, CALL LIGHT IN REACH. WILL CONT TO MONITOR AND ENDORSE TO PM NURSE.
--- NOTE | 2022-09-06 19:30 | NUR ---
RECEIVED REPORT FROM DAY SHIFT NURSE LITA FOR CONTINUITY OF CARE. PATIENT IS A&O X1. PATIENT IS ON 2L VIA NC. L, BUT PATIENT IS SATING AT 99%. IV IS A 20 R WRIST,RUNNING FLUIDS PER MD ORDER. PATIENT IS SLEEPING, LYING HIGH-FOWLERS POSITION. BED IS IN LOWEST POSITION, WHEELS LOCKED,ALL PRECAUTIONS IN PLACE. CALL LIGHT WITHIN REACH. WILL CONTINUE TO OBSERVE PATIENT.
--- NOTE | 2022-09-06 21:00 | NUR ---
SCHEDULED MEDICATIONS GIVEN. PT TOLERATED WELL. WILL CONTINUE TO MONITOR.
--- NOTE | 2022-09-07 | NUR ---
PT ASLEEP. VITALS SIGNS ARE STABLE.NO S/SX OF DISTRESS. O2 SAT AT 98%. ALL PRECAUTIONS IN PLACE.WILL CONTINUE TO MONITOR.
[2022-09-07] MEDS: ALBUTEROL SULFATE/IPRATROPIU 3 ML SOL IH SCH ×3 (00:54→19:29)
--- NOTE | 2022-09-07 02:57 | NUR ---
PATIENT RESTING IN BED, NO S/SX OF DISTRESS. RESPIRATIONS EVEN AND UNLABORED, ON 2L NC, IVF INFUSING TO RW, IV SITE INTACT & PATENT. ALL NEEDS MT. SAFETY MEASURES IN PLACE, WILL ENDORSE TO PM NURSE FOR CONTINUITY OF CARE.
[2022-09-07 04:00] VITALS: BP 108/67
[2022-09-07] MEDS: PIPERACILLIN/TAZOBACTAM 2.25 GM in DEXTROSE 5% 50 ML IV SCH ×3 (05:00→21:55)
[2022-09-07 05:27] LABS: BASOPHILS % (AUTO) 0.3 % (0.0-2.0); EOSINOPHILS % (AUTO) 0.3 % (0.0-4.0); HEMATOCRIT 29.6 % (36-48); HEMOGLOBIN 9.9 g/dL (12.0-16.0); LYMPHOCYTES # (AUTO) 0.7 K/uL (2.5-16.5); LYMPHOCYTES % (AUTO) 6.5 % (20.5-51.1); MEAN CORPUSCULAR HEMOGLOBIN 32 pg (27-31); MEAN CORPUSCULAR HGB CONC 33 g/dL (33-37); MEAN CORPUSCULAR VOLUME 96.2 fL (80-94); MONOCYTES % (AUTO) 9.7 % (1.7-9.3); NEUTROPHILS # (AUTO) 8.6 K/uL (1.8-7.7); NEUTROPHILS % (AUTO) 83.2 % (42.2-75.2); PLATELET COUNT (AUTO) 85 K/uL (140-450); RED BLOOD CELL COUNT(AUTO) 3.07 MIL/uL (4.20-5.40); RED CELL DISTRIBUTION WIDTH 16.7 % (11.6-13.7); WHITE BLOOD COUNT (AUTO) 10.4 K/uL (4.8-10.8)
[2022-09-07 05:54] LABS: ANION GAP 10.9 (8-16); CARBON DIOXIDE 28.5 mmol/L (21-32); CHLORIDE 111 mmol/L (98-107); CREATININE 1.6 mg/dL (0.6-1.3); GLUCOSE 125 mg/dL (74-106); POTASSIUM 4.4 mmol/L (3.5-5.1); SODIUM SERUM 146 mmol/L (136-145)
[2022-09-07] MEDS: METOPROLOL 5 MG/5 ML VIAL IV SCH ×3 (06:00→12:00)
[2022-09-07 06:03] LABS: UREA NITROGEN, BLOOD 66 mg/dL (7-18)
--- NOTE | 2022-09-07 09:44 | NUR ---
PT. WITH LOW SHAILESH SCALE AT MODERATE TO HIGH RISK, CONTINUE TO FOLLOW PRESSURE INJURY PREVENTION INTERVENTIONS. MASD FROM INCONTINENCY TO PERINEUM AND BUTTOCKS. -APPLY Z GUARD TO PERINEUM BID AND PRN IF SOILING -POSITIONING: TURN AND REPOSITION PATIENT Q 2H OR SOONER USE PILLOWS TO KEEP BONY PROMINENCES FROM DIRECT CONTACT WITH SURFACES USE REPOSITIONING WEDGES TO PROVIDE 30-DEGREE ANGLE FOR SIDE LYING POSITIONS OFFLOADING OR FOAM DRESSING TO ALL TUBING TO PREVENT MEDICAL DEVICES RELATED PRESSURE INJURY -RE-EVALUATING AND MANAGING INCONTINENCE MONITOR SKIN CONDITION DURING POSITION CHANGE DO NOT MASSAGE REDNESS, BONY PROMINENCES FREQUENT HARJIT-CARE AND PROVIDE BARRIER CREAMS PRN IF SOILING MOISTURE CONTROL BY OFFER BED CHING/URINAL /ABSORBENT PAD TO WICK AND HOLD MOISTURE KEEP SKIN DRY AND PROTECT FROM FRICTION -MANAGE FRICTION/SHEAR/MOBILITY KEEP HOB AT THE LOWEST LEVEL OF ELEVATION NO MORE THAN 30 DEGREE UNLESS OTHERWISE CONTRAINDICATED USE LIFT SHEET OR TRANSFER DEVICE TO MOVE PATIENT AND PREVENT LATERAL SHEER. PROTECT HEELS, ELBOWS BONY PROMINENCES WITH SKIN BERRIES OR FOAM DRESSING IF EXPOSED TO FRICTION OFFLOAD BILATERAL HEELS BY PLACING PILLOWS UNDER CALVES AT ALL TIMES, UNLESS OTHERWISE CONTRAINDICATED -PRESSURE REDISTRIBUTION SURFACE THERAPY CASTRO ISOFLEX MATTRESS -NUTRITION: PLEASE FOLLOW RD RECOMMENDATIONS AND OFFER NUTRITION SUPPLEMENTS IF ORDERED. PLEASE CONTACT WOUND CARE NURSE FOR ANY QUESTION AND CHANGE OF WOUND CONDITION.
--- NOTE | 2022-09-07 10:46 | NUR ---
PT PLACED ON ROOM AIR FROM 2LNC. NO DISTRESS NOTED. PT IS SLEEPING. WILL CONTINUE TO MONITOR.
[2022-09-07] MEDS: DEXTROSE 5% 1,000 ML IV SCH (11:00)
[2022-09-07 12:00] VITALS: BP 106/60
[2022-09-07] MEDS: Z-GUARD PASTE TP SCH (13:00)
--- NOTE | 2022-09-07 14:13 | NUR ---
09/07/2022 0800: RECEIVED PT FROM RAFI MILES. PT RESTING IN BED EYES CLOSED. NO SOB, GUARDING OR GRIMACING. NO ACUTE DISTRESS NOTED AT THIS TIME. [id number].
--- NOTE | 2022-09-07 14:44 | NUR ---
DC PLANNING ASSESSMENT COMPLETE SEE ASSESSMENT FOR DETAILS TENTATIVE DC PLAN IS FOR PT TO RETURN TO [facility] W/ [facility] ONCE CLEARED FOR DC. Addendum: 09/07/22 at 1452 by Marquis Maldonado SS Amended: Links added. Addendum: 09/07/22 at 1609 by Marquis Maldonado SS Amended: Links added.
--- NOTE | 2022-09-07 15:03 | NUR ---
09/07/22 RD INITIAL ASSESSMENT COMPLETED PLEASE REFER TO NUTRITION ASSESSMENT UNDER CARE ACTIVITY FOR ESTIMATED NUTRITIONAL NEEDS. 1. CONTINUE REGULAR DIET. 2. IF PT REQUIRES TUBE FEEDING, RECOMMEND JEVITY @50 ML/HR, FWF 80 ML Q6H, WILL PROVIDE 1200 ML TOTAL VOLUME, 1440 KCALS, 66 G PROTEIN, 1288 ML FREE WATER, MEETING 100% ESTIMATED CALORIE AND PROTEIN NEEDS -MONITOR PO INTAKE 3. CONSULT RD PRN. 4. RD TO FOLLOW-UP 2-3 DAYS, HIGH RISK REVIEWED BY SHARONDA FOY RD
--- NOTE | 2022-09-07 15:04 | NUR ---
DC PLANNING ASSESSMENT COMPLETE TENTATIVE DC PLAN IS FOR PT TO RETURN TO [facility] [place] [facility]MEDIATE CARE, WHEN CLEARED FOR DC. Addendum: 09/07/22 at 1505 by Marquis VALENTIN Amended: Links added.
[2022-09-07] MEDS ORDERED: METOPROLOL 5 MG/5 ML VIAL IV PRN (15:22)
--- NOTE | 2022-09-07 15:23 | NUR ---
NURSE CALLED STATED PT TRIED TO SPEAK AND DESATED TO 88% WHILE ON ROOM AIR. PT WAS PLACED ON 2L NC AND WILL CONTINUED TO BE MONITORED. NO DISTRESS NOTED.
--- NOTE | 2022-09-07 15:45 | NUR ---
POC DISCUSSED WITH PRIMARY RN MIRIAM PT WITH MASD SUPERFICIAL EROSIONS TO BUTTOCKS PINK ,MOIST. MIRIAM PLACE PUREWICK CATH, AND GOOD HARJIT-CARE PROVIDE. RECOMMEND TO APPLY Z GUARD TO BUTTOCKS BID AND COVER WITH FOAM DRESSING TO SACRALCOCCYX DAILY.
[2022-09-07] MEDS ORDERED: FOAM DRESSING TP PRN (15:50)
--- NOTE | 2022-09-07 16:04 | NUR ---
09/07/2022 0800: RECEIVED PT FROM RAFI MILES. PT RESTING IN BED EYES CLOSED. ON 2L N/C NO EVIDENCE OF SOB. NO GUARDING OR GRIMACING. NO ACUTE DISTRESS NOTED AT THIS TIME. [id number].
--- NOTE | 2022-09-07 19:40 | NUR ---
RECEIVED ENDORSEMENT FROM DAY SHIFT NURSE. PT IS ON BED SLEEPING. PT IS NON RESPONSIVE TO STIMULI. RESPIRATION EVEN, NOTED OCCASIONAL UNPRODUCTIVE COUGH PRESENT. O2 INHALATION VIA NASAL CANNULA IS ON GOING AT 2 LPM. IV SITE ON RIGHT HAND 20G IS INTACT & PATENT AND INFUSING WELL D5 AT 50 ML/HR
[2022-09-07 20:00] VITALS: BP 110/72
--- NOTE | 2022-09-07 20:00 | NUR ---
PT IS SLEEPING WITH OCCASIONAL UNPRODUCTIVE COUGH.
--- NOTE | 2022-09-07 21:00 | NUR ---
PT UNABLE TO BE AWAKEN, SLEEP WELL. PT DOES NOT TOUCH HER DINNER. ATTEMPT TO OFFER DINNER, PT IS SLEEPING SOUNDLY.
[2022-09-08] MEDS: Z-GUARD PASTE TP SCH (01:00)
[2022-09-08] MEDS ORDERED: Z-GUARD PASTE TP SCH (01:00)
[2022-09-08] MEDS: ALBUTEROL SULFATE/IPRATROPIU 3 ML SOL IH SCH ×4 (01:05→19:28)
--- NOTE | 2022-09-08 03:00 | NUR ---
PT IS SLEEPING
[2022-09-08 04:00] VITALS: BP 104/56
--- NOTE | 2022-09-08 04:30 | NUR ---
PERSONAL HYGIENE GIVEN. PT RESPONDED TO STIMULI.
[2022-09-08] MEDS: PIPERACILLIN/TAZOBACTAM 2.25 GM in DEXTROSE 5% 50 ML IV SCH ×2 (05:22→13:00)
[2022-09-08 05:29] LABS: BASOPHILS % (AUTO) 0.5 % (0.0-2.0); EOSINOPHILS # (AUTO) 0.2 K/uL (0-0.4); EOSINOPHILS % (AUTO) 1.8 % (0.0-4.0); HEMATOCRIT 30.8 % (36-48); HEMOGLOBIN 10.3 g/dL (12.0-16.0); LYMPHOCYTES # (AUTO) 0.7 K/uL (2.5-16.5); LYMPHOCYTES % (AUTO) 6.9 % (20.5-51.1); MEAN CORPUSCULAR HEMOGLOBIN 32 pg (27-31); MEAN CORPUSCULAR HGB CONC 33 g/dL (33-37); MEAN CORPUSCULAR VOLUME 96.2 fL (80-94); MONOCYTES # (AUTO) 1.1 K/uL (0.8-1.0); MONOCYTES % (AUTO) 11.3 % (1.7-9.3); NEUTROPHILS # (AUTO) 7.6 K/uL (1.8-7.7); NEUTROPHILS % (AUTO) 79.5 % (42.2-75.2); PLATELET COUNT (AUTO) 92 K/uL (140-450); RED CELL DISTRIBUTION WIDTH 16.8 % (11.6-13.7); WHITE BLOOD COUNT (AUTO) 9.5 K/uL (4.8-10.8)
[2022-09-08 06:26] LABS: ANION GAP 7.5 (8-16); CARBON DIOXIDE 30.7 mmol/L (21-32); CHLORIDE 108 mmol/L (98-107); CREATININE 1.2 mg/dL (0.6-1.3); GLUCOSE 127 mg/dL (74-106); POTASSIUM 4.2 mmol/L (3.5-5.1); SODIUM SERUM 142 mmol/L (136-145); UREA NITROGEN, BLOOD 43 mg/dL (7-18)
[2022-09-08] MEDS: DEXTROSE 5% 1,000 ML IV SCH (07:00)
--- NOTE | 2022-09-08 07:30 | NUR ---
RECIEVED PATIENT FROM MEDICAL DOSIMETRIST NURSE.VITALS ARE STABLE.ALL SAFETY MEASURES IN LACE.POC DISCUSSED.RT CHANGED TO ROOM AIR,SAT AT 98%.WILL CONTINUE TO MONITOR.
[2022-09-08] MEDS ORDERED: FUROSEMIDE 20 MG/2 ML VIAL IVP SCH (09:35)
[2022-09-08] MEDS ORDERED: VANCOMYCIN 1,000 MG in DEXTROSE 5% 250 ML IV SCH (10:00)
--- NOTE | 2022-09-08 15:23 | NUR ---
DC PLANNING: PATIENT HAS A DC ORDER TO RETURN [facility] CALLED [facility] SPOKE WITH RYLEY , PT CAN GO TO ROOM 48C # TO GIVE REPORT [phone] ARRANGED TRANSPORT WITH [facility] UPTIME 5 PM NOTIFIED [facility] NURSE. CM TO FOLLOW
[2022-09-08 16:00] VITALS: BP 100/57
[2022-09-08] MEDS ORDERED: ALBU3SOL83 IH (16:26)
[2022-09-08] MEDS ORDERED: FOAM DRESSING TP SCH (17:00)
--- NOTE | 2022-09-08 19:40 | NUR ---
STEVEN MILES GAVE SHIFT REPORT OF PATIENT LEAVING [place]CHARGE [place] [facility] [place]IENT WAS ALERT AND ORIENTED X 2 AND WAS ABLE TO VERBALIZE. PATIENT WAS CLEAN AND DRY DURING DISCHARGE. PATIENT WAS DISCONNECTED FROM [facility]. HOSPITAL ID WAS REMOVED. TRANSPORTATION WAS GIVEN HER DISCHARGE PAPERWORK TO THE FACILITY TO RESUME [place] [facility]SPORTERS X 2 VIA GURNEY. [email or web address]
--- NOTE | 2022-09-08 19:52 | NUR ---
CHARGE NURSE AND NURSE NOTED MEDICATION RECONCILIATION LIST WAS NEED TO BE FAXED. [email or web address]
== END 2022-09-08 19:40 | DRG 871 ==
LOC: MED 19:30 → MTU 22:21 → MMU 23:34
PROVIDERS: ADMIT Hospitalist; ATTEND Hospitalist
DX: A41.9 Sepsis, unspecified organism (principal); G93.41 Metabolic encephalopathy; J96.01 Acute respiratory failure with hypoxia; N39.0 Urinary tract infection, site not specified; N17.9 Acute kidney failure, unspecified; E87.0 Hyperosmolality and hypernatremia; E87.5 Hyperkalemia; I50.9 Heart failure, unspecified; R65.20 Severe sepsis without septic shock; I48.91 Unspecified atrial fibrillation; B96.20 Unspecified Escherichia coli [E. coli] as the cause of diseases classified elsewhere; Z20.822 Contact with and (suspected) exposure to COVID-19; I11.0 Hypertensive heart disease with heart failure; E78.5 Hyperlipidemia, unspecified; E03.9 Hypothyroidism, unspecified; E11.9 Type 2 diabetes mellitus without complications; Z79.899 Other long term (current) drug therapy
CPT/HCPCS: 36415; 71045; 80048; 80053; 80202; 81001; 82550; 82553; 83605; 83874; 83880; 85025; 85610; 85730; 87040; 87081; 87086; 93005; 94640; 96374; 99291; 99292; J1160; J1940; J2270; J2543; J3370; J3490; J7060; Q0092